=== PATIENT | female | born 1955 | race Caucasian/White ===

== ENCOUNTER 2019-08-28 08:22 | Day surgery (SDC) | payer OTHER ==
[~2019-08-28 08:22] MED LIST: ATEN50 PO; LOSA25 PO
[2019-08-28] MEDS ORDERED: IRON PO (15:00)
[2019-08-28] MEDS ORDERED: Vitamin D2000 UNIT PO (15:00)
[2019-08-28] MEDS ORDERED: OMEPRAZOLE20 MG PO (15:01)
== END 2019-08-28 23:09 | disposition home or self-care (01) ==
LOC: MOI US 08:22
DX: C50.812 Malignant neoplasm of overlapping sites of left female breast (principal); Z79.899 Other long term (current) drug therapy
CPT/HCPCS: 19285; 77065

== ENCOUNTER 2019-08-31 08:24 | Day surgery (SDC) | payer OTHER ==
[~2019-08-31] VITALS: Ht 160 cm; Wt 106.1 kg
[~2019-08-31 08:24] MED LIST changes: +IRON PO; +OMEPRAZOLE20 MG PO; +Vitamin D2000 UNIT PO
--- NOTE | 2019-08-31 10:07 | NUR ---
Ambulatory in Day Surgery. Surgical site prepped with 2% Chlorhexidine cloth wipe. History, Chart, Medications and Allergies reviewed before start of procedure.Lungs clear T/O to Auscultation. Patient confirms NPO status and agrees with scheduled surgery. Pre-Op teaching done. Pt verbalizes understanding. Patient States Post-Procedure ride home has been arranged. Patient reports completing Chlorhexadine shower X2 prior to admission to hospital.
--- NOTE | 2019-08-31 13:38 | NUR ---
1300 to [facility] s/p left breast surgery. raz in place dry and intact. breat binder on. has slight nause from transport from PACU, medicated.
== END 2019-08-31 14:35 | disposition home or self-care (01) ==
LOC: NM 08:24 → ORSCMMR 08:24 → NM 09:30
PROVIDERS: Surgery
PROC: 0HBU0ZZ Excision of Left Breast, Open Approach (ICD-10-PCS; principal; 2019-08-31 10:30)
PROC: 07B60ZX Excision of Left Axillary Lymphatic, Open Approach, Diagnostic (ICD-10-PCS; principal; 2019-08-31 10:30)
DX: C50.812 Malignant neoplasm of overlapping sites of left female breast (principal); Z17.0 Estrogen receptor positive status [ER+]; D36.0 Benign neoplasm of lymph nodes; I12.9 Hypertensive chronic kidney disease with stage 1 through stage 4 chronic kidney disease, or unspecified chronic kidney disease; N18.9 Chronic kidney disease, unspecified; E78.5 Hyperlipidemia, unspecified; E66.01 Morbid (severe) obesity due to excess calories; Z68.41 Body mass index [BMI] 40.0-44.9, adult; K21.9 Gastro-esophageal reflux disease without esophagitis; Z79.899 Other long term (current) drug therapy
CPT/HCPCS: 38792; 76098; 88307; 88342; A9520; J0690; J1100; J2250; J2370; J2405; J2704; J2765; J3010; J7120; Q9968

== ENCOUNTER 2019-09-15 07:17 | Day surgery (SDC) | payer OTHER ==
[~2019-09-15] VITALS: Ht 160 cm; Wt 106.4 kg
== END 2019-09-15 10:09 | disposition home or self-care (01) ==
LOC: ORSCSDS 07:17
PROVIDERS: Surgery
PROC: 0HBU0ZZ Excision of Left Breast, Open Approach (ICD-10-PCS; principal; 2019-09-15 08:30)
DX: C50.919 Malignant neoplasm of unspecified site of unspecified female breast (principal); I10 Essential (primary) hypertension; K21.9 Gastro-esophageal reflux disease without esophagitis; E66.01 Morbid (severe) obesity due to excess calories; E66.9 Obesity, unspecified; Z68.41 Body mass index [BMI] 40.0-44.9, adult; Z79.899 Other long term (current) drug therapy
CPT/HCPCS: 88305; 88307; J0690; J1100; J1885; J2250; J2370; J2405; J2704; J3010

== ENCOUNTER 2021-09-04 07:31 | Day surgery (SDC) | payer BC ==
[~2021-09-04] VITALS: Ht 160 cm; Wt 104.9 kg
[2021-09-04] MEDS ORDERED: Vitamin B-1250 MC1 (08:03)
[2021-09-04] MEDS ORDERED: Calcium Acetat667 MG (08:04)
[2021-09-04] MEDS ORDERED: ANAS1 (08:05)
== END 2021-09-04 09:59 | disposition home or self-care (01) ==
LOC: ORSCSDS 07:31
PROVIDERS: Internal Medicine Gastroenterology
PROC: 0DBL8ZX Excision of Transverse Colon, Via Natural or Artificial Opening Endoscopic, Diagnostic (ICD-10-PCS; principal; 2021-09-04 08:45)
PROC: 0DBN8ZX Excision of Sigmoid Colon, Via Natural or Artificial Opening Endoscopic, Diagnostic (ICD-10-PCS; principal; 2021-09-04 08:45)
PROC: 0DBK8ZX Excision of Ascending Colon, Via Natural or Artificial Opening Endoscopic, Diagnostic (ICD-10-PCS; principal; 2021-09-04 08:45)
DX: R19.5 Other fecal abnormalities (principal); D12.5 Benign neoplasm of sigmoid colon; D12.2 Benign neoplasm of ascending colon; D12.3 Benign neoplasm of transverse colon; K57.30 Diverticulosis of large intestine without perforation or abscess without bleeding; K64.8 Other hemorrhoids; I10 Essential (primary) hypertension; Z79.899 Other long term (current) drug therapy
CPT/HCPCS: 88305; J2704; J7120

== ENCOUNTER 2021-11-14 12:42 | Day surgery (SDC) | payer BC ==
[~2021-11-14] VITALS: Ht 160 cm; Wt 107.4 kg
[~2021-11-14 12:42] MED LIST changes: +ANAS1; +Calcium Acetat667 MG; +Vitamin B-1250 MC1
[2021-11-14] MEDS ORDERED: OMEP20ER (13:00)
== END 2021-11-14 15:50 | disposition home or self-care (01) ==
LOC: ORSCSDS 12:42
DX: R19.5 Other fecal abnormalities (principal); K22.70 Barrett's esophagus without dysplasia; K31.7 Polyp of stomach and duodenum; K44.9 Diaphragmatic hernia without obstruction or gangrene; I10 Essential (primary) hypertension; K21.9 Gastro-esophageal reflux disease without esophagitis; N18.9 Chronic kidney disease, unspecified; E66.9 Obesity, unspecified; Z68.41 Body mass index [BMI] 40.0-44.9, adult; Z79.899 Other long term (current) drug therapy
CPT/HCPCS: 88305; 88342; J2704; J7120

== ENCOUNTER 2024-11-17 12:25 | Day surgery (SDC) | payer MEDICARE ==
[~2024-11-17] VITALS: Ht 160 cm; Wt 101.7 kg
[~2024-11-17 12:25] MED LIST changes: +Lactated Ringer's 1,000 ML IV ONE; +OMEP20ER
[2024-11-17] MEDS ORDERED: IRON18 M1 (12:41)
[2024-11-17] MEDS ORDERED: Lactated Ringer's 1,000 ML IV ONE (13:40)
[2024-11-17] MEDS ORDERED: Lidocaine HCl 4% 5 ML SDA ONE (13:44)
[2024-11-17] MEDS ORDERED: propofoL 50 ML IV ONE (13:47)
[2024-11-17 15:02] VITALS: BP 127/102
== END 2024-11-17 15:15 | disposition home or self-care (01) ==
LOC: ORSCSDS 12:25
PROVIDERS: Internal Medicine Gastroenterology
PROC: 0DBM8ZX Excision of Descending Colon, Via Natural or Artificial Opening Endoscopic, Diagnostic (ICD-10-PCS; principal; 2024-11-17 13:45)
PROC: 0DB58ZX Excision of Esophagus, Via Natural or Artificial Opening Endoscopic, Diagnostic (ICD-10-PCS; principal; 2024-11-17 13:45)
DX: K22.70 Barrett's esophagus without dysplasia (principal); Z86.0100 Personal history of colon polyps, unspecified; D12.4 Benign neoplasm of descending colon; K44.9 Diaphragmatic hernia without obstruction or gangrene; K57.30 Diverticulosis of large intestine without perforation or abscess without bleeding; K57.10 Diverticulosis of small intestine without perforation or abscess without bleeding; I12.9 Hypertensive chronic kidney disease with stage 1 through stage 4 chronic kidney disease, or unspecified chronic kidney disease; N18.9 Chronic kidney disease, unspecified; E66.01 Morbid (severe) obesity due to excess calories; Z68.39 Body mass index [BMI] 39.0-39.9, adult; Z79.899 Other long term (current) drug therapy
CPT/HCPCS: 88305; J2003; J2704; J7120

== ENCOUNTER 2024-11-26 07:18 | Emergency (ER) | payer MEDICARE ==
[~2024-11-26] VITALS: Ht 160 cm; Wt 101.6 kg
[~2024-11-26 07:18] MED LIST changes: +IRON18 M1; -Lactated Ringer's 1,000 ML IV ONE
[2024-11-26] MEDS ORDERED: Lactated Ringer's 1,000 ML IV ONE (08:05)
[2024-11-26] MEDS ORDERED: Meclizine HCl 25 MG Tab PO ONE (08:05)
[2024-11-26] MEDS ORDERED: Ondansetron HCl 2 MG / ML 2ML Vial IV ONE (08:35)
[2024-11-26 08:52] LABS: BASOPHILS ABSOLUTE AUTO 0.07 K/mm3 (0.00-0.23); BASOPHILS PERCENT AUTO 1 % (0-2); EOSINOPHILS ABSOLUTE AUTO 0.14 K/mm3 (0.00-0.68); EOSINOPHILS PERCENT AUTO 1 % (0-6); Hematocrit 41.9 % (33.0-51.0); Hemoglobin 13.1 g/dL (11.5-16.0); IMMATURE GRAN ABSOLUTE AUTO 0.03 K/mm3 (0.00-0.10); IMMATURE GRAN PERCENT AUTO 0 % (0-1); LYMPHOCYTES ABSOLUTE AUTO 1.47 K/mm3 (0.84-5.20); LYMPHOCYTES PERCENT AUTO 15 % (21-46); MONOCYTES PERCENT AUTO 6 % (4-13); Mean Corpuscular HGB 19.4 pg (26.0-34.0); Mean Corpuscular HGB Conc 31.3 g/dL (31.5-36.5); Mean Corpuscular Volume 62 fL (80-100); Mean Platelet Volume 9.3 fL (9.1-12.4); NEUTROPHILS PERCENT AUTO 77 % (41-73); Platelet Count 327 K/mm3 (150-400); RDW Coefficient Variation 19.2 % (11.7-14.2); RDW Standard Deviation 36.9 fL (35.1-46.3); Red Blood Cell Count 6.76 M/mm3 (3.80-5.20); White Blood Cell Count 9.91 K/mm3 (4.00-11.30)
[2024-11-26 09:08] LABS: Albumin, Blood 3.6 g/dL (3.4-5.0); Albumin/Globulin Ratio 0.8 (0.8-1.8); Bilirubin, Total 0.7 mg/dL (0.1-1.0); Bun/Creatinine Ratio 17.3 (12.0-20.0); Calcium, Blood 9.4 mg/dL (8.5-10.1); Creatinine, Blood 1.04 mg/dL (0.40-1.00); Globulin, Blood 4.5 g/dL (2.2-4.0); Total Protein, Blood 8.1 g/dL (6.4-8.2)
[2024-11-26] MEDS ORDERED: ONDA4ODT MM (11:29)
[2024-11-26] MEDS ORDERED: MECL25 PO (11:29)
[2024-11-26 11:37] VITALS: BP 172/99
== END 2024-11-26 11:49 | disposition home or self-care (01) ==
LOC: ER 07:18
PROVIDERS: Family Medicine
DX: R42 Dizziness and giddiness (principal); Z88.2 Allergy status to sulfonamides; Z88.8 Allergy status to other drugs, medicaments and biological substances; Z79.899 Other long term (current) drug therapy; Z79.811 Long term (current) use of aromatase inhibitors; Z79.02 Long term (current) use of antithrombotics/antiplatelets
CPT/HCPCS: 70450; 70496; 70498; 80053; 85025; 93005; 93010; 96374-59; 99284-25; A9270; J2405; J7120; Q9967